=== PATIENT | male | born 1955 | race Two or more races ===

== ENCOUNTER 2017-05-10 08:41 | Emergency (ER) | payer BC, OTHER ==
[2017-05-10 08:45] VITALS: BP 134/85; PULSE 68; TEMP 98; BMI 30.7
--- NOTE | 2017-05-10 09:18 | PDOC ---
History of Present Illness - General Chief Complaint: Injury Stated Complaint: RT ARM INJURY Time Seen by Provider: 05/10/17 09:17 History Source: Patient Exam Limitations: No Limitations - History of Present Illness Initial Comments: 05/10/17 09:56 Patient complaints of right elbow and upper arm pain. States was carrying a heavy table yesterday and felt a snap to his right elbow and had acute pain. Patient states has strength to his bicep and able to contract it however is tender at the inferior insertions site laterally to the right arm. Denies numbness or tingling to hand, no other injury. 05/10/17 09:56 Occurred: reports: yesterday Severity: reports: moderate Pain Location: reports: upper extremity (right upper arm) Modifying Factors: improves with: None Associated Symptoms (Fall): denies symptoms Past History - Travel Traveled outside of the country in the last 30 days: No Close contact w/someone who was outside of country & ill: No - Past Medical History Allergies/Adverse Reactions: Allergies Allergy/AdvReac Type Severity Reaction Status Date / Time No Known Allergies Allergy Verified 05/10/17 08:45 Home Medications: Ambulatory Orders Acetaminophen W/ Codeine #3 [Tylenol # 3 -] 1 tab PO Q6H #14 tablet MDD 8 Dexlansoprazole [Dexilant] 60 mg PO DAILY 05/10/17 GI Disorders: Yes (GERD) - Psycho/Social/Smoking Cessation Hx Anxiety: No Suicidal Ideation: No Smoking History: Never smoked Hx Alcohol Use: Yes (SOCIAL) Drug/Substance Use Hx: No Substance Use Type: None Trauma Specific PMHX - Complaint Specific PMHX Back Injury: No Neck Injury: No Review of Systems - Review of Systems Able to Perform ROS?: Yes Is the patient limited Cam[place]onian proficient: Yes Constitutional: Yes: Symptoms Reported, See HPI, Malaise HEENTM: Yes: Symptoms Reported Musculoskeletal: Yes: Symptoms Reported, See HPI, Joint Swelling Neurological: Yes: Symptoms reported All Other Systems: Reviewed and Negative *Physical Exam - Vital Signs Last Vital Signs Temp Pulse Resp BP Pulse Ox 98.0 F 68 18 134/85 97 05/10/17 08:42 05/10/17 08:42 05/10/17 08:42 05/10/17 08:42 05/10/17 08:42 - Physical Exam General Appearance: Yes: Appropriately Dressed, Apparent Distress Neck: positive: Tender, Supple Respiratory/Chest: positive: Lungs Clear, Normal Breath Sounds Extremity: positive: Normal Capillary Refill, Normal Inspection (no defects, able to contract right biceps with good strength. Pain is reproduced at inferior lateral insertion at tendon below elbow. Able to supinate and pronate at wrist without tenderness at elbow joint. Strong grasp flexion and extension to fingers. Neurovascular intact to hand. Shoulder intact) Integumentary: positive: Normal Color, Dry, Warm Neurologic: positive: distribution center associate II-XII NML intact, Fully Oriented, Alert, Normal Mood/ Affect, Normal Response, Motor Strength 02/24 ED Treatment Course - RADIOLOGY Radiology Studies Ordered: Category Date Time Status ELBOW-RIGHT [RAD] Stat Radiology 05/10/17 09:17 Ordered Progress Note - Progress Note Progress Note: Xray Negative. Right biceps strain, we'll sling, provide NSAIDs, and have follow up with Orth O as needed *DC/Admit/Observation/Transfer Diagnosis at time of Disposition: Strain of biceps tendon Qualifiers: Encounter type: initial encounter Laterality: right Qualified Code(s): S46.211A - Strain of muscle, fascia and tendon of other parts of biceps, right arm, initial encounter - Discharge Dispostion Disposition: HOME Admit: No - Prescriptions Prescriptions: Acetaminophen W/ Codeine #3 [Tylenol # 3 -] 1 tab PO Q6H #14 tablet MDD 8 - Referrals Referrals: Kiersten Beard MD [Primary Care Provider] - Eros Bunn MD [Staff Physician] - - Patient Instructions Printed Discharge Instructions: DI for Muscle Strain Additional Instructions: Rest, ice to area on and off for 15 minutes 4-6 times a day Avoid heavy lifting or exercise until pain and swelling is resolved or until further directed Keep area highly elevated to reduce swelling Use splints/Lyle wrap as directed Followup with orthopedist in one to 2 days if not improving, if significantly improved may wait one week for followup with orthopedist May use ibuprofen 2-200 mg tablets every 6 hours as needed for pain - Post Discharge Activity Work/School Note: Back to Work
[2017-05-10] MEDS ORDERED: KETOROLAC TROMETHAMINE 60 MG/2 ML VIAL IM ONE (09:57)
[2017-05-10] MEDS ORDERED: KETOROLAC TROMETHAMINE 60 MG/2 ML VIAL ONE (09:59)
== END 2017-05-10 10:08 | disposition home or self-care (01) ==
LOC: JERFT 08:41
PROC: 3E0233Z Introduction of Anti-inflammatory into Muscle, Percutaneous Approach (ICD-10-PCS; principal; 2017-05-10)
DX: S46.211A Strain of muscle, fascia and tendon of other parts of biceps, right arm, initial encounter (principal); X50.0XXA Overexertion from strenuous movement or load, initial encounter; Y93.89 Activity, other specified; Y92.214 College as the place of occurrence of the external cause; Y99.0 Civilian activity done for income or pay
CPT/HCPCS: 73070-TC-RT; 99281-25

== ENCOUNTER 2023-08-25 05:57 | Day surgery (SDC) | payer OTHER ==
[2023-08-18 14:18] VITALS: BMI 30.5
[2023-08-25] MEDS ORDERED: EPINEPHrine 1:1,000 1,000 MCG/ML ML ONE (07:28)
[2023-08-25] MEDS ORDERED: BUPIVACAINE HCL/EPINEPHRINE/PF 30 ML VIAL IJ ONE (07:28)
[2023-08-25] MEDS ORDERED: FENTANYL CITRATE/PF 50 MCG/ML VIAL ONE (07:32)
[2023-08-25] MEDS ORDERED: MIDAZOLAM HCL 2 MG/2 ML SINGLE DOSE VIAL ONE (07:32)
[2023-08-25] MEDS ORDERED: DEXAMETHASONE SOD PHOSPHATE/PF 10 MG/ML SDV ONE (07:32)
[2023-08-25] MEDS ORDERED: ROPIVACAINE HCL 0.5% 30ML VIAL ONE (07:33)
[2023-08-25] MEDS ORDERED: PROPOFOL 40 ML ONE (07:50)
[2023-08-25] MEDS ORDERED: SUCCINYLCHOLINE CHLORIDE 200 MG/10 ML SYRINGE ONE (07:50)
[2023-08-25] MEDS ORDERED: ceFAZolin SODIUM 1 GM VIAL ONE (08:05)
[2023-08-25] MEDS ORDERED: BUPIVACAINE 0.25% /EPI 1:200,000 10 ML VIAL NR ONE (08:24)
[2023-08-25] MEDS ORDERED: PROPOFOL 20 ML ONE ×3 (08:25→08:59)
[2023-08-25] MEDS ORDERED: PHENYLEPHRINE HCL 10 MG/1 ML SINGLE DOSE VIAL ONE (09:37)
[2023-08-25] MEDS ORDERED: oxyCODONE HCL 5 MG TABLET PO PRN ×2 (09:45)
[2023-08-25] MEDS ORDERED: ACETAMINOPHEN 1000 MG/100 ML BAG IVPB ONE (09:45)
[2023-08-25] MEDS ORDERED: LACTATED RINGERS SOLUTION 1,000 ML IV SCH (09:45)
[2023-08-25] MEDS ORDERED: KETOROLAC TROMETHAMINE 30 MG/1 ML VIAL IVPUSH SCH (10:00)
[2023-08-25] MEDS ORDERED: KETOROLAC TROMETHAMINE 30 MG/1 ML VIAL ONE (10:31)
[2023-08-25] MEDS ORDERED: ACETAMINOPHEN INJECTION 100 ML IVPB ONE (10:31)
[2023-08-25 11:10] VITALS: RESP 20
[2023-08-25 12:18] VITALS: BP 120/72; PULSE 76; TEMP 97.1
== END 2023-08-25 11:50 | disposition home or self-care (01) ==
LOC: FASU 05:57
PROVIDERS: ATTEND Orthopaedic Surgery
PROC: 0LB24ZZ Excision of Left Shoulder Tendon, Percutaneous Endoscopic Approach (ICD-10-PCS; principal; 2023-08-25 08:24)
PROC: 0PBB4ZZ Excision of Left Clavicle, Percutaneous Endoscopic Approach (ICD-10-PCS; 2023-08-25 08:24)
PROC: 0RNK4ZZ Release Left Shoulder Joint, Percutaneous Endoscopic Approach (ICD-10-PCS; 2023-08-25 08:24)
DX: M75.22 Bicipital tendinitis, left shoulder (principal); M75.52 Bursitis of left shoulder; M75.122 Complete rotator cuff tear or rupture of left shoulder, not specified as traumatic
CPT/HCPCS: 29823; 29824; 29826; 29827; C1713; 82962; 94760